=== PATIENT | female | born 1980 | race American Indian/Alaskan Native ===

== ENCOUNTER 2018-07-27 00:38 | Inpatient (IN) | payer OTHER ==
[~2018-07-27] VITALS: Ht 167.6 cm; Wt 139.7 kg
[2018-07-27] MEDS ORDERED: OXYTOCIN 30 UNITS/LACT RINGERS 500 ML IV ONE (00:49)
[2018-07-27] MEDS ORDERED: RINGERS SOLUTION,LACTATED 1,000 ML IV PRN (00:49)
[2018-07-27] MEDS ORDERED: RINGERS SOLUTION,LACTATED 1,000 ML IV ONE (00:52)
[2018-07-27] MEDS ORDERED: FentaNYL CITRATE-PF 100 MCG/2 ML VIAL IVP PRN ×4 (01:00→19:00)
[2018-07-27] MEDS ORDERED: NIFEdipine 10 MG CAPSULE PO ONE (01:00)
[2018-07-27] MEDS ORDERED: METOCLOPRAMIDE HCL 5 MG/ML 2 ML VIAL IVP PRN (01:00)
[2018-07-27] MEDS ORDERED: AMPICILLIN SODIUM 2 GM/NS 100 ML IV ONE (01:00)
[2018-07-27] MEDS ORDERED: CITRIC ACID/SODIUM CITRATE 30 ML SOLUTION UDCUP PO PRN (01:00)
[2018-07-27 01:09] LABS: GLUCOMETER DEV NAME(LOC) 4S.; GLUCOSE,POINT OF CARE 141 MG/DL (70-110)
[2018-07-27] MEDS: RINGERS SOLUTION,LACTATED 1,000 ML IV SCH ×3 (01:14→11:47)
[2018-07-27 01:19] VITALS: BP 151/68
[2018-07-27] MEDS ORDERED: INSNPH SQ (01:42)
[2018-07-27] MEDS ORDERED: PREN1TAB26 PO (01:42)
[2018-07-27] MEDS ORDERED: LABE100T5 PO (01:42)
[2018-07-27] MEDS ORDERED: ASPI81TA39 PO (01:46)
[2018-07-27 01:53] LABS: BASOPHILS % (AUTO) 0.1 % (0.0-2.0); EOSINOPHILS % (AUTO) 0.3 % (1.0-6.0); HEMATOCRIT 37.5 % (36-46); HEMOGLOBIN 12.4 g/dL (12.0-16.0); LYMPHOCYTES # (AUTO) 1.6 K/uL (1.0-4.8); LYMPHOCYTES % (AUTO) 7.3 % (22.0-44.0); MEAN CORPUSCULAR HEMOGLOBIN 29.2 pg (26.0-34.0); MEAN CORPUSCULAR HGB CONC 33.1 G/dL (31.0-37.0); MEAN CORPUSCULAR VOLUME 88 fL (80-100); MONOCYTES # (AUTO) 1.2 K/uL (0.1-1.0); MONOCYTES % (AUTO) 5.6 % (2.0-9.0); NEUTROPHILS # (AUTO) 18.3 K/uL (1.8-7.7); NEUTROPHILS % (AUTO) 86.7 % (40.0-70.0); PLATELET COUNT (AUTO)-OB 271 K/uL (150-450); RED BLOOD CELL COUNT(AUTO) 4.24 MIL/uL (4.00-5.20); RED CELL DISTRIBUTION WIDTH 14.4 % (11.5-14.5)
[2018-07-27 03:12] LABS: APPEARANCE,URINE CLOUDY (CLEAR); BILIRUBIN,URINE NEGATIVE (NEGATIVE); GLUCOSE, URINE (UA) NEGATIVE (NEGATIVE); KETONES,URINE NEGATIVE (NEGATIVE); LEUKOCYTE ESTERASE ,URINE SMALL (NEGATIVE); NITRATE,URINE NEGATIVE (NEGATIVE); OCCULT BLOOD,URINE LARGE (NEGATIVE); PH,URINE 5.5 (5.0-8.0); PROTEIN,URINE NEGATIVE (NEGATIVE); UROBILINOGEN,URINE 0.2 mg/dL (<=1.0)
[2018-07-27 03:23] LABS: BACTERIA,URINE Rare /HPF (None Seen); RBC,URINE 51-100 /HPF (0-2); SQUAMOUS EPITHELIAL CELL,UR Many /LPF (None Seen)
[2018-07-27] MEDS ORDERED: ROPIVACAINE HCL/PF 0.2% 100 ML ED ONE (03:50)
[2018-07-27] MEDS ORDERED: LIDOCAINE/PF 2% 5 ML VIAL ONE ×2 (03:50→18:03)
[2018-07-27] MEDS ORDERED: DiphenhydrAMINE HCL 50 MG/ML VIAL IVP PRN ×3 (04:15→19:00)
[2018-07-27] MEDS ORDERED: ONDANSETRON HCL 4 MG/2 ML VIAL IVP PRN ×4 (04:15→23:00)
[2018-07-27] MEDS ORDERED: NALBUPHINE HCL 10 MG/ML VIAL IVP PRN ×4 (04:15→19:00)
[2018-07-27 04:26] LABS: ANION GAP 15 mmol/L (8-16); CALCIUM, TOTAL 8.8 mg/dL (8.8-10.5); CARBON DIOXIDE 22 mmol/L (22-29); CHLORIDE 97 mmol/L (98-107); CREATININE 0.67 mg/dL (0.60-1.30); GLOMERULAR FILTR. RATE CALC > 60 mL/min (>60); GLUCOSE,RANDOM 163 mg/dL (70-110); POTASSIUM 3.6 mmol/L (3.5-5.1); SODIUM SERUM 134 mmol/L (136-145); UREA NITROGEN, BLOOD 7 mg/dL (7-18)
[2018-07-27 04:32] LABS: ALANINE AMINOTRANSFERASE 29 U/L (12-78); ALBUMIN 2.4 g/dL (3.4-5.0); ALKALINE PHOSPHATASE 115 U/L (46-116); ASPARTATE AMINOTRANSFERASE 17 U/L (15-37); BILIRUBIN,TOTAL 0.4 mg/dL (0.1-1.0); TOTAL PROTEIN, SERUM 7.3 g/dL (6.4-8.2)
[2018-07-27 06:20] LABS: GLUCOMETER DEV NAME(LOC) 4S.; GLUCOSE,POINT OF CARE 150 MG/DL (70-110)
[2018-07-27] MEDS ORDERED: OXYTOCIN 30 UNITS/LACT RINGERS 500 ML IV PRN (06:55)
[2018-07-27] MEDS ORDERED: DEXTROSE 5%-0.45% SODIUM CHL 500 ML IV SCH (07:15)
[2018-07-27] MEDS ORDERED: INSULIN REGULAR, HUMAN 100 UNITS in SODIUM CHLORIDE 0.9% 99 ML IV PRN ×2 (07:15)
[2018-07-27] MEDS ORDERED: DEXTROSE 50%-WATER 25 GM/50 ML SYRINGE IVP PRN (07:15)
[2018-07-27] MEDS: AMPICILLIN SODIUM 1 GM/NS 50 ML IV SCH ×3 (07:52→17:02)
[2018-07-27] MEDS ORDERED: OXYGEN THERAPY IH SCH ×4 (08:00→20:00)
[2018-07-27] MEDS ORDERED: DEXTROSE 5%-0.45% SODIUM CHL 1,000 ML IV SCH (09:00)
[2018-07-27 09:19] LABS: GLUCOMETER DEV NAME(LOC) 4S.; GLUCOSE,POINT OF CARE 125 MG/DL (70-110)
[2018-07-27 09:19] LABS: GLUCOMETER DEV NAME(LOC) 4S.; GLUCOSE,POINT OF CARE 105 MG/DL (70-110)
[2018-07-27] MEDS: ROPIVACAINE HCL/PF 0.2% 100 ML ED PRN ×2 (11:02→16:20)
[2018-07-27 13:19] LABS: GLUCOMETER DEV NAME(LOC) 4S.; GLUCOSE,POINT OF CARE 86 MG/DL (70-110)
[2018-07-27 13:19] LABS: GLUCOMETER DEV NAME(LOC) 4S.; GLUCOSE,POINT OF CARE 89 MG/DL (70-110)
[2018-07-27 15:14] LABS: GLUCOMETER DEV NAME(LOC) 4S.; GLUCOSE,POINT OF CARE 84 MG/DL (70-110)
[2018-07-27 15:14] LABS: GLUCOMETER DEV NAME(LOC) 4S.; GLUCOSE,POINT OF CARE 80 MG/DL (70-110)
[2018-07-27] MEDS ORDERED: FentaNYL CITRATE-PF 100 MCG/2 ML VIAL ONE ×5 (18:03→21:21)
[2018-07-27] MEDS ORDERED: ACETAMINOPHEN 1000 MG/ISO-OSM 100 ML IV ONE (18:03)
[2018-07-27] MEDS ORDERED: MORPHINE SULFATE/PF 0.5 MG/ML 10 ML AMP ONE ×2 (18:03→19:50)
[2018-07-27] MEDS ORDERED: DEXAMETHASONE SOD PHOS 4 MG/ML VIAL IVP PRN (18:45)
[2018-07-27] MEDS ORDERED: MORPHINE SULFATE 10 MG/ML SYRINGE IVP PRN ×2 (18:45→19:00)
[2018-07-27] MEDS ORDERED: MORPHINE SULFATE 2 MG/ML SYRINGE IVP PRN ×2 (18:45)
[2018-07-27] MEDS ORDERED: NALOXONE HCL 0.4 MG/ML VIAL IVP PRN (19:00)
[2018-07-27] MEDS ORDERED: MIDAZOLAM HCL 2 MG/2 ML VIAL ONE (19:13)
[2018-07-27] MEDS ORDERED: GUM MASTIC/STORAX/MSAL/ALCOHOL LIQUID 0.67 ML VIAL TP ONE ×2 (19:43→19:52)
[2018-07-27] MEDS: FentaNYL CITRATE-PF 100 MCG/2 ML VIAL IVP PRN ×4 (20:35→23:28)
[2018-07-27] MEDS ORDERED: LANOLIN 7 GM OINTMENT TP PRN (21:00)
[2018-07-27] MEDS ORDERED: OXYTOCIN 20 UNITS/LACT RINGERS 1,000 ML IV ONE (22:00)
[2018-07-27] MEDS ORDERED: DiphenhydrAMINE HCL 50 MG/ML VIAL IM PRN (22:45)
[2018-07-27 23:29] LABS: GLUCOMETER DEV NAME(LOC) 4S.; GLUCOSE,POINT OF CARE 80 MG/DL (70-110)
[2018-07-28] MEDS ORDERED: ACETAMINOPHEN 1000 MG/ISO-OSM 100 ML IV SCH (03:00)
[2018-07-28] MEDS: FentaNYL CITRATE-PF 100 MCG/2 ML VIAL IVP PRN ×4 (03:07→11:00)
[2018-07-28] MEDS: RINGERS SOLUTION,LACTATED 1,000 ML IV SCH ×2 (03:08→14:19)
[2018-07-28] MEDS ORDERED: 0.9% SODIUM CHLORIDE 10 ML VIAL IVP ONE (05:18)
[2018-07-28] MEDS ORDERED: OXYTOCIN 10 UNITS/ML VIAL IM ONE (05:18)
[2018-07-28] MEDS ORDERED: LIDOCAINE/PF 2% 5 ML VIAL IM ONE (05:18)
[2018-07-28 06:24] LABS: GLUCOMETER DEV NAME(LOC) 4S.; GLUCOSE,POINT OF CARE 121 MG/DL (70-110)
[2018-07-28 06:38] LABS: BASOPHILS % (AUTO) 0.3 % (0.0-2.0); EOSINOPHILS % (AUTO) 0.2 % (1.0-6.0); HEMATOCRIT 31.7 % (36-46); HEMOGLOBIN 10.4 g/dL (12.0-16.0); LYMPHOCYTES % (AUTO) 9.1 % (22.0-44.0); MEAN CORPUSCULAR HEMOGLOBIN 29.4 pg (26.0-34.0); MEAN CORPUSCULAR HGB CONC 32.8 G/dL (31.0-37.0); MEAN CORPUSCULAR VOLUME 90 fL (80-100); MONOCYTES # (AUTO) 1.4 K/uL (0.1-1.0); MONOCYTES % (AUTO) 6.5 % (2.0-9.0); NEUTROPHILS # (AUTO) 18.6 K/uL (1.8-7.7); NEUTROPHILS % (AUTO) 83.9 % (40.0-70.0); PLATELET COUNT (AUTO)-OB 242 K/uL (150-450); RED BLOOD CELL COUNT(AUTO) 3.54 MIL/uL (4.00-5.20); RED CELL DISTRIBUTION WIDTH 14.8 % (11.5-14.5)
[2018-07-28] MEDS: MAGNESIUM HYDROXIDE SUSPENSION 30 ML UDCUP PO PRN ×2 (08:13→20:51)
[2018-07-28] MEDS: OxyCODONE HCL 5 MG IR TABLET PO PRN ×2 (12:38→16:36)
[2018-07-28] MEDS: ACETAMINOPHEN/CODEINE 300-30 MG TABLET PO PRN (20:51)
[2018-07-29] MEDS: ACETAMINOPHEN/CODEINE 300-30 MG TABLET PO PRN ×6 (04:33→20:32)
[2018-07-29] MEDS: IBUPROFEN 800 MG TABLET PO PRN ×4 (05:29→22:57)
[2018-07-29] MEDS: MAGNESIUM HYDROXIDE SUSPENSION 30 ML UDCUP PO PRN ×2 (08:23→22:57)
[2018-07-29 09:45] LABS: GLUCOMETER DEV NAME(LOC) 4S.; GLUCOSE,POINT OF CARE 107 MG/DL (70-110)
[2018-07-29 14:44] LABS: GLUCOMETER DEV NAME(LOC) 4S.; GLUCOSE,POINT OF CARE 128 MG/DL (70-110)
[2018-07-29] MEDS ORDERED: HEPARIN SODIUM,PORCINE 10,000 UNITS/ML VIAL SQ SCH (15:00)
[2018-07-29 15:39] LABS: INR 0.9 (0.9-1.1); PROTHROMBIN TIME 9.4 SEC (9.4-11.6)
[2018-07-29 20:44] LABS: GLUCOMETER DEV NAME(LOC) 4S.; GLUCOSE,POINT OF CARE 103 MG/DL (70-110)
[2018-07-30] MEDS: ACETAMINOPHEN/CODEINE 300-30 MG TABLET PO PRN ×3 (00:02→12:56)
[2018-07-30 07:12] LABS: INR 0.9 (0.9-1.1); PROTHROMBIN TIME 9.1 SEC (9.4-11.6)
[2018-07-30 08:20] LABS: GLUCOMETER DEV NAME(LOC) 4S.; GLUCOSE,POINT OF CARE 92 MG/DL (70-110)
[2018-07-30 09:24] LABS: GLUCOMETER DEV NAME(LOC) 4S.; GLUCOSE,POINT OF CARE 169 MG/DL (70-110)
[2018-07-30] MEDS: IBUPROFEN 800 MG TABLET PO PRN (11:10)
[2018-07-30] MEDS ORDERED: IBUP-2070 PO (12:24)
[2018-07-30] MEDS ORDERED: PERCT PO (12:28)
[2018-07-30] MEDS ORDERED: FERR-89 PO (12:29)
[2018-07-30] MEDS ORDERED: DSS100 PO (12:35)
[2018-07-30] MEDS ORDERED: HEPARIN SODIUM,PORCINE 5,000 UNITS/ML VIAL SQ ONE ×2 (13:15→13:30)
[2018-07-30] MEDS ORDERED: HEPARIN SODIUM,PORCINE 10,000 UNITS/ML VIAL SQ ONE (13:30)
[2018-07-30 14:05] LABS: GLUCOMETER DEV NAME(LOC) 4S.; GLUCOSE,POINT OF CARE 126 MG/DL (70-110)
== END 2018-07-30 14:20 | disposition home or self-care (01) | DRG 788 ==
LOC: OBSVTOIN 00:38 → 4S 00:38
PROVIDERS: ADMIT Obstetrics & Gynecology; ATTEND Obstetrics & Gynecology
PROC: 10D00Z1 Extraction of Products of Conception, Low, Open Approach (ICD-10-PCS; principal; 2018-07-27)
DX: O24.429 Gestational diabetes mellitus in childbirth, unspecified control (principal); O32.4XX0 Maternal care for high head at term, not applicable or unspecified; Z3A.35 35 weeks gestation of pregnancy; Z37.0 Single live birth; O62.2 Other uterine inertia; O99.214 Obesity complicating childbirth
CPT/HCPCS: 76805; 80307; 84550; 85384; 86850; 86900; 86901; 86920; 87086; J0131; J0290; J0690; J1644; J1815; J2250; J2274; J2590; J2765; J2795; J3010; J3490; J7050; J7060; J7120